=== PATIENT | female | born 1985 | race Caucasian/White ===

== ENCOUNTER 2018-05-23 08:54 | Emergency (ER) | payer OTHER ==
[2018-05-23] MEDS ORDERED: ONDANSETRON 4 MG/2 ML VIAL ONE (09:55)
[2018-05-23] MEDS ORDERED: MORPHINE 4 MG/ML SYR ONE (09:55)
[2018-05-23 09:57] LABS: Urine Blood TRACE (NEG); Urine Glucose NEGATIVE (NEG); Urine Protein NEGATIVE (NEG)
[2018-05-23 09:57] LABS: Absolute Lymphocytes (CBC) 1.3 K/uL (0.7-4.9); Absolute Monocytes 1.3 K/uL (0.1-1.3); Absolute Neutrophil 9.2 K/uL (1.8-8.0); Basophils % 0.5 % (0-1.3); Eosinophils % 0.5 % (0-4.4); Hematocrit 38.1 % (36.0-45.0); Lymphocytes % 11.2 % (15.3-44.8); MPV 8.4 fL (7.6-11.3); Monocytes % 10.7 % (3.3-12.3); RBC Red Blood Cell Count 4.12 M/uL (3.86-4.86)
[2018-05-23 10:01] LABS: Urine Bacteria >50 /HPF (<20)
[2018-05-23 10:02] LABS: Urine Culture Reflex Order NOT NEEDED
[2018-05-23 10:05] LABS: Potassium 4.1 mmol/L (3.5-5.1)
[2018-05-23 10:06] LABS: Albumin 2.8 g/dL (3.4-5.0); Bilirubin Direct 0.1 mg/dL (0-0.2); Bilirubin Total 0.2 mg/dL (0.2-1.0); Protein, Total 6.9 g/dL (6.4-8.2)
--- NOTE | 2018-05-23 10:40 | RAD REPORT ---
EXAM DESCRIPTION: CT - Abdomen Pelvis W Contrast - 05/23/2018 10:21 am CLINICAL HISTORY: Abdominal pain/left flank pain COMPARISON: none. TECHNIQUE: Computed axial tomography of the abdomen pelvis was obtained. 100 cc Isovue-300 was admin istered intravenously. Oral contrast was not requested which limits evaluation of bowel. All CT scans are performed using dose optimization technique as appropriate and may include automated exposure control or mA/KV adjustment according to patient size. FINDINGS: 14 millimeter low to intermediate density lesion is present within the lower pole of the l eft kidney. Additional 5 millimeter low to intermediate density lesion is seen within the left kidney . Small right renal cysts. No hydronephrosis. Mild enhancement of the wall of the left renal pelvis s uspected. The gallbladder has been removed. Mild prominence of the biliary tree probably is physiologic which s hould be correlated clinically with appropriate lab values. The liver, spleen, pancreas, and adrenals appear unremarkable. There is no evidence of diverticulitis. Small umbilical hernia IMPRESSION: Mild enhancement of the wall of the left renal pelvis. A 14 millimeter low to intermedia te density lesion within the lower pole left kidney. These findings probably are related to pyeloneph ritis. A less likely consideration is that the patient has a complex cystic mass within the left kidn ey. A followup renal ultrasound in 6 months recommended for re-evaluation.
[2018-05-23] MEDS ORDERED: KETOROLAC 30 MG/ML INJ ONE (10:47)
[2018-05-23] MEDS ORDERED: NA CHLORIDE 0.9% 1,000 ML ONE (11:33)
[2018-05-23] MEDS ORDERED: CEFTRIAXONE/SWI 1gm 1 GM/10 ML SYR ONE (11:33)
--- NOTE | 2018-05-23 11:38 | EDPHYS ---
Physician Documentation [facility] Name: Isabela Campos Age: 33 yrs Sex: Female : 1985 Arrival Date: 05/23/2018 Time: 08:58 Bed 19 Private MD: ED Physician Adam Coronado HPI: 05/23 09:18 This 33 yrs old Female presents to ER via Ambulatory with complaints of cp Fever, Back Pain, Abdominal Pain. 09:18 The patient complains of pain in the left mid back. The pain radiates to the left low cp back and left leg and abdomen. The patient reports fever, that was measured at 101 degrees Fahrenheit. Onset: The symptoms/episode began/occurred 2 day(s) ago. Patient reports she was diagnosed with UTI last Sunday and prescribed Bactrim which she has been taking. Historical: - Allergies: 09:13 No Known Allergies; hb - Home Meds: 09:13 None [Active]; hb - PMHx: 09:13 Aneurysm; hb - PSHx: 09:13 Open Heart; knee - bilateral; Cholecystectomy; hb - Immunization history:: Adult Immunizations up to date. - Social history:: Smoking status: Patient/guardian denies using tobacco. - Ebola Screening: : No symptoms or risks identified at this time. ROS: 09:30 Constitutional: Negative for chills, fever, poor PO intake. cp 09:30 Eyes: Negative for injury, pain, redness, and discharge. cp 09:30 ENT: Negative for drainage from ear(s), ear pain, sore throat, difficulty swallowing, difficulty handling secretions. 09:30 Cardiovascular: Negative for chest pain, edema, palpitations. 09:30 Respiratory: Negative for cough, shortness of breath, wheezing. 09:30 Abdomen/GI: Positive for abdominal pain, nausea, Negative for vomiting, diarrhea, constipation, anorexia, black/tarry stool, rectal bleeding. 09:30 Back: Positive for flank pain, on the left, Negative for injury or acute deformity, decreased range of motion. 09:30 : Positive for urinary symptoms, Negative for vaginal bleeding. 09:30 Skin: Negative for rash. 09:30 Neuro: Negative for altered mental status, headache, weakness. 09:30 All other systems are negative. Exam: 09:35 Constitutional: The patient appears in no acute distress, alert, awake, non-toxic, well cp developed, well nourished. 09:35 Head/Face: Normocephalic, atraumatic. cp 09:35 Eyes: Periorbital structures: appear normal, Conjunctiva: normal, no exudate, no injection, Sclera: no appreciated abnormality, Lids and lashes: appear normal, bilaterally. 09:35 ENT: External ear(s): are unremarkable, Ear canal(s): are normal, clear, TM's: bulging, is not appreciated, bilaterally, dullness, bilaterally, erythema, is not appreciated, bilaterally, Nose: is normal, Mouth: Lips: moist, Oral mucosa: moist, Posterior pharynx: is normal, airway is patent, no erythema, no exudate. 09:35 Neck: ROM/movement: is normal, is supple, without pain, no range of motions limitations, no meningismus, no nuchal rigidity. 09:35 Chest/axilla: Inspection: normal, Palpation: is normal, no crepitus, no tenderness. 09:35 Cardiovascular: Rate: normal, Rhythm: regular. 09:35 Respiratory: the patient does not display signs of respiratory distress, Respirations: normal, no use of accessory muscles, no retractions, no splinting, no tachypnea, labored breathing, is not present, Breath sounds: are clear throughout, no decreased breath sounds, no stridor, no wheezing. 09:35 Abdomen/GI: Inspection: abdomen appears normal, Bowel sounds: active, all quadrants, Palpation: soft, in all quadrants, mild abdominal tenderness, in the left upper quadrant and left lower quadrant, rebound tenderness, is not appreciated, involuntary guarding, is not appreciated. 09:35 Back: CVA tenderness, that is moderate, is noted on the left. 09:35 Skin: no rash present. Vital Signs: 09:13 BP 139 / 84; Pulse 91; Resp 16; Temp 99.5(TE); Pulse Ox 99% on R/A; Pain 5/10; hb 09:40 BP 125 / 82; Pulse 81; Resp 20; Pulse Ox 99% on R/A; Pain 5/10; sv 11:32 BP 110 / 69; Pulse 71; Resp 18; Pulse Ox 98% on R/A; aj1 12:13 BP 112 / 66; Pulse 72; Resp 18; Pulse Ox 99% on R/A; aj1 MDM: 09:14 Patient medically screened. 11:35 Data reviewed: vital signs, nurses notes, lab test result(s), radiologic studies, CT cp scan, I have discussed the patient's presentation/case with the attending Emergency Department Physician; and as a result, I will discharge patient. 11:35 Counseling: I had a detailed discussion with the patient and/or guardian regarding: the cp historical points, exam findings, and any diagnostic results supporting the discharge/admit diagnosis, lab results, radiology results, to return to the emergency department if symptoms worsen or persist or if there are any questions or concerns that arise at home. Response to treatment: the patient's symptoms have markedly improved after treatment. 05/23 09:23 Order name: Basic Metabolic Panel; Complete Time: 10:31 05/23 09:23 Order name: CBC with Diff; Complete Time: 10:31 05/23 09:23 Order name: Creatinine for Radiology; Complete Time: 10:31 05/23 09:23 Order name: Hepatic Function; Complete Time: 10:31 05/23 09:23 Order name: Lipase; Complete Time: 10:31 05/23 09:23 Order name: Urine Microscopic Only; Complete Time: 10:31 05/23 10:31 Interpretation: Normal except: UWBC >50; URBC 5-10; UBACT >50; SQEPI 20-50. 05/23 09:23 Order name: CT Abd/Pelvis - W/Contrast: no oral contrast; Complete Time: 10:41 05/23 10:43 Interpretation: Report reviewed. 05/23 09:41 Order name: Urine Dipstick--Ancillary (enter results); Complete Time: 10:31 05/23 09:41 Order name: Urine --Ancillary (enter results); Complete Time: 10:31 05/23 09:23 Order name: IV Saline Lock; Complete Time: 09:53 05/23 09:23 Order name: Labs collected and sent; Complete Time: 09:53 05/23 09:23 Order name: Urine Dipstick-Ancillary (obtain specimen); Complete Time: 09:53 05/23 09:23 Order name: Urine Test (obtain specimen); Complete Time: 09:53 05/23 11:03 Order name: PO challenge; Complete Time: 11:30 cp Administered Medications: 09:45 Drug: Zofran 4 mg Route: IVP; Infused Over: 2 mins; Site: right antecubital; sv 10:15 Follow up: Response: No adverse reaction aj1 09:47 Drug: morphine 4 mg Route: IVP; Infused Over: 3 mins; Site: right antecubital; sv 10:15 Follow up: Response: No adverse reaction; Pain is decreased aj1 10:42 Drug: TORadol 30 mg Route: IVP; Site: right antecubital; aj1 11:25 Follow up: Response: No adverse reaction aj1 11:24 Drug: Rocephin - (cefTRIAXone) 1 grams Route: IVPB; Infused Over: 30 mins; Site: right aj1 antecubital; 13:05 Follow up: Response: No adverse reaction; IV Status: Completed infusion; IV Intake: [id number] 11:24 Drug: NS 0.9% 1000 ml Route: IV; Rate: 1 bolus; Site: right antecubital; aj1 13:04 Follow up: IV Status: Completed infusion; IV Intake: 1000ml aj1 Disposition: 19:03 Co-signature as Attending Physician, Adam Coronado MD. rn Disposition: 05/23/18 11:38 Discharged to Home. Impression: Left Pyelonephritis. - Condition is Stable. - Discharge Instructions: Pyelonephritis, Adult. - Prescriptions for Ibuprofen 800 mg Oral Tablet - take 1 tablet by ORAL route every 8 hours As needed take with food; 30 tablet. Tylenol- Codeine #3 300-30 mg Oral Tablet - take 2 tablets by ORAL route every 6 hours As needed; 15 tablet. Zofran 4 mg Oral Tablet - take 1 tablet by ORAL route every 12 hours As needed; 20 tablet. cefpodoxime 200 mg Oral Tablet - take 1 tablet by ORAL route every 12 hours for 10 days with food; 20 tablet. - Medication Reconciliation Form, Thank You Letter, Antibiotic Education, Prescription Opioid Use form. - Follow up: Private Physician; When: 2 - 3 days; Reason: Recheck today's complaints. - Problem is new. - Symptoms have improved. Signatures: Dispatcher [employer] EDMarylu Lindsay RN RN aj1 Alma Cronin RN RN sv Nieto, Roman, MD MD rn Ben Rueda PA PA cp Baxter, Heather, RN RN Corrections: (The following items were deleted from the chart) 13:06 11:38 05/23/2018 11:38 Discharged to Home. Impression: Left Pyelonephritis. Condition aj1 is Stable. Forms are Medication Reconciliation Form, Thank You Letter, Antibiotic Education, Prescription Opioid Use. Follow up: Private Physician; When: 2 - 3 days; Reason: Recheck today's complaints. Problem is new. Symptoms have improved. cp
--- NOTE | 2018-05-23 11:38 | ER ---
Nurse's Notes [facility] Name: Isabela Campos Age: 33 yrs Sex: Female : 1985 Arrival Date: 05/23/2018 Time: 08:58 Bed 19 Private MD: Diagnosis: Left Pyelonephritis Presentation: 05/23 09:11 Presenting complaint: Burning and pain with urination x 1 week, left flank pain, hb nausea, and fever x 2 days. TMAX 101. On Bactrim Day 7 for UTI. Transition of care: patient was not received from another setting of care. Onset of symptoms was May 17, 2018. Risk Assessment: Do you want to hurt yourself or someone else? Patient reports no desire to harm self or others. Care prior to arrival: Medication(s) given: Motrin, at 0300 today. 09:11 Method Of Arrival: Ambulatory hb 09:11 Acuity: HEAVENLY 3 hb 09:35 Initial Sepsis Screen: Does the patient meet any 2 criteria? No. Patient's initial sv sepsis screen is negative. Does the patient have a suspected source of infection? Yes: Dysuria/Frequency/Urgency/UTI. Historical: - Allergies: 09:13 No Known Allergies; hb - Home Meds: 09:13 None [Active]; hb - PMHx: 09:13 Aneurysm; hb - PSHx: 09:13 Open Heart; knee - bilateral; Cholecystectomy; hb - Immunization history:: Adult Immunizations up to date. - Social history:: Smoking status: Patient/guardian denies using tobacco. - Ebola Screening: : No symptoms or risks identified at this time. Screenin:35 Abuse screen: Denies threats or abuse. Denies injuries from another. Nutritional sv screening: No deficits noted. Tuberculosis screening: No symptoms or risk factors identified. Fall Risk None identified. Assessment: 09:35 General: Appears in no apparent distress. uncomfortable, well developed, Behavior is sv calm, cooperative, appropriate for age. Pain: Complains of pain in left low back and left mid back Pain radiates to posterior aspect of left lateral abdomen, anterior aspect of left lateral abdomen and left lower quadrant Pain currently is 5 out of 10 on a pain scale. Is continuous. Neuro: Level of Consciousness is awake, alert, obeys commands, Oriented to person, place, time, situation, Moves all extremities. Full function Gait is steady. Respiratory: Respiratory effort is even, unlabored, Respiratory pattern is regular, symmetrical. : Reports burning with urination, pain in left flank(s), lower quadrant(s) in lower back with urination, that she has been taking Bactrim for a recent dx of UTI. Derm: Skin is pink, warm \T\ dry. Musculoskeletal: Range of motion: intact in all extremities. 10:30 Reassessment: Patient appears in no apparent distress at this time. No changes from aj1 previously documented assessment. Patient and/or family updated on plan of care and expected duration. Pain level reassessed. Patient is alert, oriented x 3, equal unlabored respirations, skin warm/dry/pink. 11:32 Reassessment: Patient appears in no apparent distress at this time. No changes from aj1 previously documented assessment. Patient and/or family updated on plan of care and expected duration. Pain level reassessed. Patient is alert, oriented x 3, equal unlabored respirations, skin warm/dry/pink. 12:12 Reassessment: Patient discharge pending completion of IV fluids, patient was instructed aj1 to keep her arm as straight as possible to allow fluids to infuse. 13:06 Reassessment: Patient appears in no apparent distress at this time. No changes from aj1 previously documented assessment. Patient and/or family updated on plan of care and expected duration. Pain level reassessed. Patient is alert, oriented x 3, equal unlabored respirations, skin warm/dry/pink. Vital Signs: 09:13 BP 139 / 84; Pulse 91; Resp 16; Temp 99.5(TE); Pulse Ox 99% on R/A; Pain 5/10; hb 09:40 BP 125 / 82; Pulse 81; Resp 20; Pulse Ox 99% on R/A; Pain 5/10; sv 11:32 BP 110 / 69; Pulse 71; Resp 18; Pulse Ox 98% on R/A; aj1 12:13 BP 112 / 66; Pulse 72; Resp 18; Pulse Ox 99% on R/A; aj1 ED Course: 08:58 Patient arrived in ED. tw3 09:12 Triage completed. hb 09:13 Arm band placed on. hb 09:14 Ben Rueda PA is PHCP. cp 09:14 Adam Coronado MD is Attending Physician. cp 09:29 Alma Cronin, RN is Primary Nurse. sv 09:35 Patient has correct armband on for positive identification. Placed in gown. Bed in low sv position. Call light in reach. Adult w/ patient. Pulse ox on. NIBP on. Door closed. Warm blanket given. Head of bed elevated. 09:35 Initial lab(s) drawn, by me, sent to lab. Inserted saline lock: 20 gauge in right sv antecubital area, using aseptic technique. Blood collected. Flushed right antecubital with 5 ml normal saline. 09:[address] Scan. sv 10:03 Report given to Marylu ALEJANDRA. sv 10:07 Marylu Heath, RN is Primary Nurse. aj1 10:[address] jg6 10:22 CT Abd/Pelvis - W/Contrast: no oral contrast In Process Unspecified. EDMS 12:13 No provider procedures requiring assistance completed. aj1 13:05 IV discontinued, intact, bleeding controlled, No redness/swelling at site. Pressure aj1 dressing applied. Administered Medications: 09:45 Drug: Zofran 4 mg Route: IVP; Infused Over: 2 mins; Site: right antecubital; sv 10:15 Follow up: Response: No adverse reaction aj1 09:47 Drug: morphine 4 mg Route: IVP; Infused Over: 3 mins; Site: right antecubital; sv 10:15 Follow up: Response: No adverse reaction; Pain is decreased aj1 10:42 Drug: TORadol 30 mg Route: IVP; Site: right antecubital; aj1 11:25 Follow up: Response: No adverse reaction aj1 11:24 Drug: Rocephin - (cefTRIAXone) 1 grams Route: IVPB; Infused Over: 30 mins; Site: right aj1 antecubital; 13:05 Follow up: Response: No adverse reaction; IV Status: Completed infusion; IV Intake: [id number] 11:24 Drug: NS 0.9% 1000 ml Route: IV; Rate: 1 bolus; Site: right antecubital; aj1 13:04 Follow up: IV Status: Completed infusion; IV Intake: 1000ml aj1 Intake: 13:04 IV: 1000ml; Total: 1000ml. aj1 13:05 IV: 10ml; Total: 1010ml. aj1 Outcome: 11:38 Discharge ordered by . bobbi 13:05 Discharged to home ambulatory. aj1 13:05 Condition: good 13:05 Discharge instructions given to patient, family, Instructed on discharge instructions, follow up and referral plans. no drinking with medication, no driving heavy equipment, medication usage, Demonstrated understanding of instructions, follow-up care, medications, Prescriptions given X 4. 13:06 Patient left the ED. aj1 Signatures: Dispatcher [employer] EDMarylu Lindsay RN RN aj1 Alma Cronin RN RN sv Page, Corey, PA PA Sheri Rodriguez RN RN hb Wade, Geeta tw3 Keisha Stallworth j6
== END 2018-05-23 13:06 | disposition home or self-care (01) ==
LOC: ER 08:54
DX: N12 Tubulo-interstitial nephritis, not specified as acute or chronic (principal)
CPT/HCPCS: 36415; 74177; 80048; 80076; 81003; 81015; 81025; 83690; 85025; 96365; 96366; 96375; 99284; J0696; J2405; J7030; Q9967

== ENCOUNTER 2019-04-19 19:07 | Observation (INO) | payer OTHER ==
[2019-04-19] MEDS ORDERED: MORPHINE 4 MG/ML SYR ONE (20:03)
[2019-04-19] MEDS ORDERED: ONDANSETRON 4 MG/2 ML VIAL ONE ×2 (20:03→22:39)
[2019-04-19] MEDS ORDERED: NA CHLORIDE 0.9% 1,000 ML ONE (20:04)
[2019-04-19 20:31] LABS: Protime INR 0.89
[2019-04-19 20:34] LABS: Absolute Lymphocytes (CBC) 2.1 K/uL (0.7-4.9); Basophils % 0.9 % (0-1.3); Hematocrit 42.9 % (36.0-45.0); Lymphocytes % 21.1 % (15.3-44.8); MPV 7.7 fL (7.6-11.3); RBC Red Blood Cell Count 4.65 M/uL (3.86-4.86)
--- NOTE | 2019-04-19 20:42 | RAD REPORT ---
EXAM DESCRIPTION: Mick Single View04/19/2019 8:02 pm CLINICAL HISTORY: Chest pain COMPARISON: 2016 FINDINGS: The lungs appear clear of acute infiltrate. The heart is normal size. Postsurgical changes involve the chest. IMPRESSION: No acute abnormalities displayed
[2019-04-19 20:48] LABS: ALT/SGPT 23 U/L (12-78); AST/SGOT 17 U/L (15-37); Albumin 3.2 g/dL (3.4-5.0); Alkaline Phosphatase 79 U/L (45-117); BUN Blood Urea Nitrogen 14 mg/dL (7-18); Bicarbonate 29 mmol/L (21-32); Bilirubin Direct 0.1 mg/dL (0-0.2); Bilirubin Total 0.4 mg/dL (0.2-1.0); Glucose Level 91 mg/dL (74-106); Lipase 154 U/L (73-393); Magnesium 2.3 mg/dL (1.8-2.4); NT PRO-BNP 133 pg/mL (<125); Potassium 4.3 mmol/L (3.5-5.1); Protein, Total 7.6 g/dL (6.4-8.2); Sodium Level 140 mmol/L (136-145); Troponin (Emerg Dept Use Only) < 0.02 ng/mL (0.0-0.045)
[2019-04-19] MEDS ORDERED: HYDROMORPHONE HCL 1 MG/ML INJ ONE (21:07)
--- NOTE | 2019-04-19 22:52 | EDPHYS ---
Physician Documentation [facility] Name: Isabela Campos Age: 34 yrs Sex: Female : 1985 Arrival Date: 04/19/2019 Time: 19:11 Bed 28 Private MD: ED Physician Kamala Recinos HPI: 04/18 22:48 This 34 yrs old Female presents to ER via Ambulatory with complaints of Arm ma2 Pain, Throat pain, Rash. 22:48 This 34 yrs old Female presents to ER via Ambulatory with complaints of chest ma2 pain. 22:48 The patient or guardian complains of chest pain. Associated signs and symptoms: ma2 Pertinent negatives: erythema, nausea, swelling, tingling. Severity of symptoms: At their worst the symptoms were mild, in the emergency department the symptoms are unchanged. Historical: - Allergies: 19:24 No Known Allergies; ll1 - PMHx: 19:24 Aneurysm; Pulmonary embolism; ll1 - PSHx: 19:24 knee surgeries; Cholecystectomy; ll1 - Immunization history:: Flu vaccine is not up to date. - Social history:: Smoking status: Patient denies any tobacco usage or history of. Patient/guardian denies using alcohol, street drugs, The patient lives with family. - Family history:: not pertinent. ROS: 22:48 Constitutional: Negative for fever, chills, and weight loss. ma2 22:48 All other systems are negative. Exam: 22:48 Constitutional: This is a well developed, well nourished patient who is awake, alert, ma2 and in no acute distress. Chest/axilla: Normal chest wall appearance and motion. Nontender with no deformity. No lesions are appreciated. Cardiovascular: Regular rate and rhythm with a normal S1 and S2. No gallops, murmurs, or rubs. Normal PMI, no JVD. No pulse deficits. Respiratory: Lungs have equal breath sounds bilaterally, clear to auscultation and percussion. No rales, rhonchi or wheezes noted. No increased work of breathing, no retractions or nasal flaring. Abdomen/GI: Soft, non-tender, with normal bowel sounds. No distension or tympany. No guarding or rebound. No evidence of tenderness throughout. MS/ Extremity: Pulses equal, no cyanosis. Neurovascular intact. Full, normal range of motion. Neuro: Awake and alert, GCS 15, oriented to person, place, time, and situation. Cranial nerves II-XII grossly intact. Motor strength 5/5 in all extremities. Sensory grossly intact. Cerebellar exam normal. Normal gait. 22:48 Skin: rash a mild rash is noted, rash can be described as erythematous, macular, on the abdomen. 22:48 Skin: ecchymosis on lower abdomin. ca2 Vital Signs: 19:20 Pulse 111; Resp 18; Temp 98.6; Pulse Ox 100% ; Weight 90.72 kg; Height 5 ft. 5 in. ll1 (165.10 cm); Pain 9/10; 20:00 BP 141 / 98; Pulse 92; Resp 18; Temp 98.3(O); Pulse Ox 100% on R/A; Pain 8/10; fu 21:00 BP 131 / 81; Pulse 70; Resp 18; Pulse Ox 100% ; Pain 8/10; fu 21:30 BP 137 / 81; Pulse 83; Resp 16; Pulse Ox 100% on R/A; fu 22:30 BP 114 / 66; Pulse 87; Resp 16; Pulse Ox 100% on R/A; Pain 6/10; fu 23:15 BP 117 / 70; Pulse 83; Resp 15; Pulse Ox 99% on R/A; fu 19:20 Body Mass Index 33.28 (90.72 kg, 165.10 cm) 1 MDM: 19:32 Patient medically screened. [facility] 22:48 Differential diagnosis: chest pain, PE moderate risk given she had pe in past and ca2 tachycardic here and on ocp, she does not take any blood thinners, ct pe done and constrast timing is suboptimal, will admit for obs and re-evaluate in the morning, pulse went down with ivf and pain control. 22:52 Data reviewed: vital signs, nurses notes, EMS record, diagnostic data from outside [facility] facility, lab test result(s), EKG, radiologic studies. Counseling: I had a detailed discussion with the patient and/or guardian regarding: the historical points, exam findings, and any diagnostic results supporting the discharge/admit diagnosis, the presence of at least one elevated blood pressure reading (>120/80) during this emergency department visit, the need for further work-up and treatment in the hospital. Response to treatment: the patient's symptoms have resolved after treatment. 22:52 ED course: ekg done and is sinus, with rate of 83, normal axis, intervals wnl no ma2 ischemic changes . 04/18 19:47 Order name: Basic Metabolic Panel; Complete Time: 20:59 ma2 04/18 19:47 Order name: CBC with Diff; Complete Time: 20:59 ma2 04/18 19:47 Order name: LFT's; Complete Time: 20:59 ma2 04/18 19:47 Order name: Magnesium; Complete Time: 20:59 ma2 04/18 19:47 Order name: NT PRO-BNP; Complete Time: 20:59 ma2 04/18 19:47 Order name: PT-INR; Complete Time: 20:59 ma2 04/18 19:47 Order name: Troponin (emerg Dept Use Only); Complete Time: 20:59 ma2 04/18 19:47 Order name: Lipase; Complete Time: 20:59 ma2 04/18 23:03 Order name: CBC with Automated Diff EDMS 04/18 23:03 Order name: CBC with Automated Diff EDMS 04/18 23:03 Order name: Comprehensive Metabolic Panel EDMS 04/18 23:03 Order name: Comprehensive Metabolic Panel EDMS 04/18 23:14 Order name: Troponin I EDMS 04/18 23:14 Order name: Troponin I EDMS 04/18 19:47 Order name: XRAY Chest (1 view) ma2 04/18 19:47 Order name: EKG; Complete Time: 19:48 ma2 04/18 19:47 Order name: Cardiac monitoring; Complete Time: 20:33 ma2 04/18 19:47 Order name: EKG - Nurse/Tech; Complete Time: 20:33 ma2 04/18 19:47 Order name: IV Saline Lock; Complete Time: 20:34 ma2 04/18 19:47 Order name: Labs collected and sent; Complete Time: 20:34 ma2 04/18 19:47 Order name: CT Chest For PE Angio ma2 04/18 20:47 Order name: RAD; Complete Time: 20:59 EDMS 04/18 23:03 Order name: CONS Pharmacy Consult EDMS 04/18 23:03 Order name: Regular EDMS 04/18 23:17 Order name: Chest Angio EDMS 04/18 19:47 Order name: O2 Per Protocol; Complete Time: 20:34 ma2 04/18 19:47 Order name: O2 Sat Monitoring; Complete Time: 22:17 ma2 Administered Medications: 20:14 Drug: Zofran (Ondansetron) 4 mg Route: IVP; Site: right antecubital; fu 20:47 Follow up: Response: No adverse reaction fu 20:20 Drug: morphine 4 mg Route: IVP; Site: right antecubital; fu 20:34 Follow up: Response: Pain is unchanged, physician notified fu 20:30 Drug: NS 0.9% 1000 ml Route: IV; Rate: 1 bolus; Site: right antecubital; fu 22:54 Follow up: Response: No adverse reaction; IV Intake: 1000ml fu 21:08 Drug: Dilaudid 1 mg Route: IVP; Site: right antecubital; fu 22:08 Follow up: Response: Pain is decreased fu 22:45 Drug: Zofran (Ondansetron) 4 mg Route: IVP; Infused Over: 2 mins; Site: right fu antecubital; 23:29 Follow up: Response: Nausea is decreased fu Disposition: 04/19/19 22:52 Hospitalization ordered by Isabel Nicole for Observation. Preliminary diagnosis is Chest pain, unspecified. - Bed requested for Telemetry/MedSurg (observation). - Status is Observation. fu - Condition is Stable. - Problem is new. - Symptoms are unchanged. Signatures: Dispatcher [employer] EDMO Elizabeth Stallworth RN RN Jeff Benitez RN RN Kamala Recinos MD MD ma2 Lewis, Lynsay, RN RN ll1 Corrections: (The following items were deleted from the chart) 23:37 22:52 Hospitalization Ordered by Isabel Nicole MD for Observation. Preliminary cg diagnosis is Chest pain, unspecified. Bed requested for Telemetry/MedSurg (observation). Status is Observation. Condition is Stable. Problem is new. Symptoms are unchanged. ca2 04/19 00:19 04/18 23:37 04/19/2019 22:52 Hospitalization Ordered by Isabel Nicole MD for fu Observation. Preliminary diagnosis is Chest pain, unspecified. Bed requested for Telemetry/MedSurg (observation). Status is Observation. Condition is Stable. Problem is new. Symptoms are unchanged. cg
--- NOTE | 2019-04-19 22:52 | ER ---
Nurse's Notes [facility] Name: Isabela Campos Age: 34 yrs Sex: Female : 1985 Arrival Date: 04/19/2019 Time: 19:11 Bed 28 Private MD: Diagnosis: Chest pain, unspecified Presentation: 04/18 19:20 Chief complaint: Patient states: Pain to mid chest with eating swallowing for a couple ll1 weeks, worsening pain this week. Pain now to left shoulder blade area. Rash to body. Today noticed bruising to upper legs. No fever. Coronavirus screen: The patient has NOT traveled to a country currently being monitored by the [facility] within the last 14 days. Proceed with normal triage procedures. Ebola Screen: Patient denies travel to an Ebola-affected area in the 21 days before illness onset. Initial Sepsis Screen: Does the patient meet any 2 criteria? HR > 90 bpm. No. Patient's initial sepsis screen is negative. Does the patient have a suspected source of infection? No. Patient's initial sepsis screen is negative. Risk Assessment: Do you want to hurt yourself or someone else? Patient reports no desire to harm self or others. 19:20 Method Of Arrival: Ambulatory ll1 19:20 Acuity: HEAVENLY 3 ll1 Historical: - Allergies: 19:24 No Known Allergies; ll1 - PMHx: 19:24 Aneurysm; Pulmonary embolism; ll1 - PSHx: 19:24 knee surgeries; Cholecystectomy; ll1 - Immunization history:: Flu vaccine is not up to date. - Social history:: Smoking status: Patient denies any tobacco usage or history of. Patient/guardian denies using alcohol, street drugs, The patient lives with family. - Family history:: not pertinent. Screenin:49 Abuse screen: Denies threats or abuse. Nutritional screening: No deficits noted. fu Tuberculosis screening: No symptoms or risk factors identified. Fall Risk None identified. Assessment: 19:20 General: Appears uncomfortable, Behavior is calm, cooperative, appropriate for age, fu Reports heartburn, chest discomfort, back pain, bruising to left hip, rashes on breast folds. Pain: Complains of pain in back pain Pain radiates to left shoulder and arm Pain currently is 9 out of 10 on a pain scale. Quality of pain is described as sharp, Pain began about 1 week ago. Neuro: Level of Consciousness is awake, alert, obeys commands, Oriented to person, place, time, situation. Cardiovascular: Reports chest discomfort Denies diaphoresis, lightheadedness, nausea, palpitations, shortness of breath, syncope, vomiting. Respiratory: Airway is patent Respiratory effort is even, unlabored, Respiratory pattern is regular, symmetrical. GI: Abdomen is obese. : No signs and/or symptoms were reported regarding the genitourinary system. EENT: No signs and/or symptoms were reported regarding the EENT system. Derm: scar noted to mid chest area from previous surgery. 20:50 Reassessment: No changes from previously documented assessment. Patient and/or family fu updated on plan of care and expected duration. Pain level reassessed. Patient is alert, oriented x 3, equal unlabored respirations, skin warm/dry/pink. patient stated Morphine IV not helping with pain, Dr. Recinos notified. 22:09 Reassessment: Patient and/or family updated on plan of care and expected duration. Pain fu level reassessed. Patient is alert, oriented x 3, equal unlabored respirations, skin warm/dry/pink. patient resting in bed. 22:30 Reassessment: patient complaining of nausea, Dr. Recinos notified. fu 22:40 Reassessment: Dr. Recinos in patient's room, advised admission. fu 23:28 Reassessment: No changes from previously documented assessment. Patient and/or family fu updated on plan of care and expected duration. Pain level reassessed. Dr. Nicole in patient's room. Vital Signs: 19:20 Pulse 111; Resp 18; Temp 98.6; Pulse Ox 100% ; Weight 90.72 kg; Height 5 ft. 5 in. ll1 (165.10 cm); Pain 9/10; 20:00 BP 141 / 98; Pulse 92; Resp 18; Temp 98.3(O); Pulse Ox 100% on R/A; Pain 8/10; fu 21:00 BP 131 / 81; Pulse 70; Resp 18; Pulse Ox 100% ; Pain 8/10; fu 21:30 BP 137 / 81; Pulse 83; Resp 16; Pulse Ox 100% on R/A; fu 22:30 BP 114 / 66; Pulse 87; Resp 16; Pulse Ox 100% on R/A; Pain 6/10; fu 23:15 BP 117 / 70; Pulse 83; Resp 15; Pulse Ox 99% on R/A; fu 19:20 Body Mass Index 33.28 (90.72 kg, 165.10 cm) ll1 ED Course: 19:11 Patient arrived in ED. es 19:23 Triage completed. ll1 19:25 Arm band placed on Patient placed in an exam room. ll1 19:31 Kamala Recinos MD is Attending Physician. ma2 19:40 Inserted saline lock: 22 gauge in left antecubital area, using aseptic technique. Blood fu collected. 19:54 Jeff Benitez, RN is Primary Nurse. fu 20:34 Radiology exam delayed due to lab results not completed at this time. (BUN/Creatinine). mw3 21:21 CT Chest For PE Angio In Process Unspecified. EDMS 21:49 No provider procedures requiring assistance completed. fu 22:01 Patient has correct armband on for positive identification. Placed in gown. Bed in low fu position. Call light in reach. 22:02 air sampling and monitoring on. Pulse ox on. NIBP on. fu 22:52 Isabel Nicole MD is Hospitalizing Provider. ma2 23:51 Patient admitted, IV remains in place. intact. fu Administered Medications: 20:14 Drug: Zofran (Ondansetron) 4 mg Route: IVP; Site: right antecubital; fu 20:47 Follow up: Response: No adverse reaction fu 20:20 Drug: morphine 4 mg Route: IVP; Site: right antecubital; fu 20:34 Follow up: Response: Pain is unchanged, physician notified fu 20:30 Drug: NS 0.9% 1000 ml Route: IV; Rate: 1 bolus; Site: right antecubital; fu 22:54 Follow up: Response: No adverse reaction; IV Intake: 1000ml fu 21:08 Drug: Dilaudid 1 mg Route: IVP; Site: right antecubital; fu 22:08 Follow up: Response: Pain is decreased fu 22:45 Drug: Zofran (Ondansetron) 4 mg Route: IVP; Infused Over: 2 mins; Site: right fu antecubital; 23:29 Follow up: Response: Nausea is decreased fu Intake: 22:54 IV: 1000ml; Total: 1000ml. fu Outcome: 22:52 Decision to Hospitalize by Provider. ma2 23:50 Admitted to Tele accompanied by tech, family with patient, via wheelchair, room 415, fu Report called to Dawn ALEJANDRA 23:50 Condition: stable 23:50 Instructed on the need for admit, Demonstrated understanding of instructions. 04/19 00:19 Patient left the ED. fu Signatures: Dispatcher [employer] EDMckenzie Salazar Felix RN RN Kamala Recinos MD MD ma2 Jessica Beyer 3 Ellie Samano RN RN ll1 Corrections: (The following items were deleted from the chart) 04/18 22:26 19:20 Pain: Complains of pain in back pain Pain radiates to left shoulder and arm Pain fu currently is 8 out of 10 on a pain scale. Quality of pain is described as sharp, Pain began about 1 month ago fu
[2019-04-19] MEDS ORDERED: ALBUTEROL 2.5 MG/3 ML NEB SOL NEB PRN (23:00)
[2019-04-19] MEDS ORDERED: ONDANSETRON 4 MG/2 ML VIAL IV PRN (23:00)
[2019-04-19] MEDS ORDERED: GUAIFENESIN/DM 5 ML UCUP PO PRN (23:07)
[2019-04-20 00:29] VITALS: BMI 33.8
[2019-04-20 00:54] LABS: Thyroid Stimulating Hormone 5.46 uIU/mL (0.360-3.740)
[2019-04-20] MEDS: MORPHINE 2 MG/ML SYR IV PRN ×5 (01:10→20:14)
[2019-04-20] MEDS: D5 0.9 NS 1,000 ML IV SCH ×3 (01:10→19:00)
[2019-04-20] MEDS: PROMETHAZINE INJ 25 MG/ML AMP IV PRN ×5 (01:11→20:15)
--- NOTE | 2019-04-20 01:20 | HP ---
Date of Admission: 04/19/2019 Presenting Complaint: Epigastric area pain. History Of Present Illness: Ms. 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 She has had several successful pregnancies without any complicated blood clots or bleeding since then. She developed epigastric pain post after swallowing any solids and liquid si nce the last 1 month. The pain is associated with feeling of intense nausea, but no overt vomiting. The patient states she has been taking lots of Pepcid and jynl-far-hrzsgdz Tums for the symptoms. S he denies any dysphagia. She states pain later became associated with radiation towards the back as well as to the shoulder. She denies any anterior chest wall pain. She is a former smoker, but quit smoking over the last 15 years. There is a family history of father with coronary artery disease in h is 60s, but he is still alive and well. She takes OCP for control now. She denies any other s ymptoms. She denies any fever or chills, she denies any cough. She presented to the ED today emanuel tovar of persistent pain with meals as well as a new onset bruising in her thighs. Although she admits t o recently shaving around the area. She denies any recent fall. Past Medical History: Significant for thoracic aortic aneurysm status post repair as well as PE. Past Surgical History: Aortic aneurysm repair in 2001, history of knee surgeries, history of cholecy stectomy for gallstones in 2008. Allergies: NO KNOWN DRUG ALLERGIES. Home Medications: Patient takes control pill, Enskyce. Family History: Father with history of coronary artery disease in his 60s. There is no history of P E or CVA. Social History: Patient is a former smoker, quit over 15 years ago. She resides in the community wi th the family. Spouse is at her bedside now. She denies any alcohol or illicit drug use. Review of Systems: All systems reviewed x14 were negative except for rash over the upper thighs. Physical Examination: Current Vitals: Blood pressure of 132/68, pulse rate of 92, respiratory rate of 18, temperature 98.3 , O2 saturation 100% on room air, weight of 90.7 kg. General: Obese, young female, calm, not in any distress. HEENT: Pupils equal and reactive to light. Extraocular motor movement intact. Neck: No JVD. No carotid bruits. Chest: Good air entry bilaterally. No crepitations. Cardiovascular: S1, S2. Rate and rhythm regular. GI: Mild epigastric area tenderness, but no rebound. Bowel sounds positive. No reproducible tender ness. No guarding noted. Extremities: Small fading purpura over the bilateral upper thighs around the groin area, although sh e has recently shaved. No pedal edema. No calf tenderness. Integumentary: No other rash noted except for the fading purpura areas of 2 small discrete sizes in the upper groin/upper thigh area. Neuro: Patient is alert, oriented. Cranial nerves 2 through 12 grossly intact. Laboratory Data: EKG showed normal sinus rhythm, borderline QT length, QTc of [address]-segme nt changes. Rest of lab, INR 0.89, PT 10.6. WBC 9.9, hemoglobin 14, neutrophils 65%, no bands. Sod ium 140, potassium 4.3, creatinine 1.25, calcium 9.0, magnesium 2.3. T-bilirubin, AST, alkaline phos phatase normal. Troponin less than 0.02. Repeat pending. ProBNP of 133, albumin 3.2, lipase 154. Imaging Studies: Chest x-ray shows no acute infiltrate. CTA shows poor timing of contrast injection , but no evidence of thoracic dissection or aneurysm. No focal consolidations, but study was subopti mal for ruling out pulmonary embolism. Repeat CT in 12 hours recommended. Impression: 1.Presumed gastritis. 2.Rule out acute coronary syndrome and pulmonary embolism, although less likely. 3.Creatinine elevation. Plan: We will admit patient to observation. We will obtain D-dimer and if D-dimer is negative, we w ill not need repeat CTA since the patient does not have features consistent with pulmonary embolism a s she is not short of breath and there is no describable chest pain. However, if D-dimer is elevated , then we will go ahead and obtain repeat CTA to rule out PE. We will do gentle IV hydration for yocasta vated creatinine, especially in setting of contrast exposure. Follow repeat creatinine in a.m. We w ill start patient on empirical Protonix 40 mg b.i.d. We will consult GI since the patient's findings of postprandial epigastric pain seems to be consistent with gastritis. Pancreatitis is also conside red, but normal lipase ruled out pancreatitis. We will consult GI to evaluate. We will do repeat ca rdiac enzymes if negative, but still low threshold for acute coronary syndrome. If PE and acute everett nary syndrome are ruled out, then patient can be safely discharged with Protonix if unable to get GI over the weekend. We will do subcutaneous Lovenox for DVT prophylaxis. Advanced directives, patient is full code. Total time spent in review of record, discussion with patient, and evaluation greater than 60 minutes . EO/MODL Voice ID: [id number]
[2019-04-20] MEDS: PANTOPRAZOLE 40MG TABLET PO SCH ×3 (01:32→15:40)
[2019-04-20] MEDS: LORAZEPAM 0.5 MG TABLET PO PRN ×2 (01:33→21:33)
[2019-04-20] MEDS ORDERED: IPRATROPIUM BROM 0.5MG/2.5ML NEB SCH (03:00)
[2019-04-20 04:24] LABS: Urine Appearance CLEAR; Urine Bilirubin NEGATIVE (NEG); Urine Blood NEGATIVE (NEG); Urine Color YELLOW; Urine Glucose NEGATIVE (NEG); Urine Protein NEGATIVE (NEG); Urine Specific Gravity >=1.030 (1.005-1.030); Urine Urobilinogen 0.2 mg/dL (0.2-1.0)
[2019-04-20 04:30] LABS: Urine Bacteria 20-50 /HPF (<20); Urine Mucus 1+ /HPF (NONE SEEN); Urine RBC NONE SEEN /HPF (NONE SEEN)
[2019-04-20 05:53] LABS: Absolute Lymphocytes (CBC) 2.3 K/uL (0.7-4.9); Basophils % 1.3 % (0-1.3); Hematocrit 36.7 % (36.0-45.0); Lymphocytes % 24.6 % (15.3-44.8); RBC Red Blood Cell Count 3.99 M/uL (3.86-4.86)
[2019-04-20 06:12] LABS: Albumin 2.8 g/dL (3.4-5.0); Bilirubin Total 0.5 mg/dL (0.2-1.0); Protein, Total 6.5 g/dL (6.4-8.2)
--- NOTE | 2019-04-20 06:26 | EKG ---
Test Date: 2019-04-19 Test Time: 20:23:16 Data Capture Clerk: SCOOTER MEASUREMENT RESULTS: Intervals: Rate: 82 HI: 136 QRSD: 94 QT: 414 QTc: 483 [place]: P: 48 HI: 136 QRS: 38 T: 48 INTERPRETIVE STATEMENTS: Normal sinus rhythm Prolonged QT Abnormal ECG No previous ECG available for comparison Electronically Signed On 04-20-19 06:26:11 CDT by David Victor
[2019-04-20] MEDS ORDERED: DIPHENHYDRAMINE 25 MG TAB/CAP PO ONE (06:45)
[2019-04-20] MEDS ORDERED: NITROGLYCERIN 0.2 MG/HR (5 MG) PATCH TD SCH (09:00)
[2019-04-20] MEDS ORDERED: NYSTATIN PWDR 100000 UNIT/GM TOP PRN (09:00)
[2019-04-20] MEDS ORDERED: FAMOTIDINE 20 MG TAB PO SCH (09:00)
[2019-04-20] MEDS ORDERED: GUAIFENESIN 600 MG SA TAB PO SCH (09:00)
--- NOTE | 2019-04-20 13:15 | RAD REPORT ---
EXAM DESCRIPTION: CT - Chest For Pe Angio - 04/20/2019 12:37 pm CLINICAL HISTORY: Chest pain. chest pain r/o PE COMPARISON: Chest For Pe Angio dated 04/19/2019 TECHNIQUE: CT angiogram of the pulmonary arteries was performed with MIP. All CT scans are performed using dose optimization technique as appropriate and may include automated exposure control or mA/KV adjustment according to patient size. FINDINGS: No evidence of pulmonary thromboembolism. No acute aortic finding demonstrated. The lungs are clear. No significant pericardial or pleural fluid. No concerning bony finding. IMPRESSION: No evidence of pulmonary thromboembolism. No acute lung findings.
--- NOTE | 2019-04-20 14:11 | CON ---
Date of Consultation: 04/20/2019 Reason For Consultation: Midepigastric pain. History Of Present Illness: Patient is a 34-year-old white female with history of traumatic aortic a neurysm status post repair in 2001 and laparoscopic cholecystectomy. [facility] to midepigastric pain. The patient states that recently she has been having postprandial midep igastric pain that reaches a maximum of 10/10; currently, she has none but states every time she eats , she has had pain just to the left of that pain that radiates to the middle of her back. On the lef t side of her back, she has another pain that can reach 10/10, but it stays, never goes away and it c urrently is 6/10. It is worse with deep breathing. She has a history of pulmonary emboli with a D-d onelia that is elevated on this admission at 942. The patient has a history of pulmonary emboli with t he aortic arch and thoracic aortic aneurysm repair in 2001. The patient ate breakfast earlier this m orning. Is unable to do EGD, but will need to await repeat CT scan, which has been done as well. Past Medical History: Significant for a thoracic aorta aneurysm and aortic arch repair in 2001 along with a pulmonary embolism at that time. She is also status post laparoscopic cholecystectomy. Past Surgical History: Included thoracic aortic aneurysm and repair in 2001, history of knee surgeri es, and laparoscopic cholecystectomy for gallstones in 2008. Medications: control pill Enskyce. Allergies: NKDA. Social History: She is , 3 children. No tobacco; quit 15 years ago. Positive alcohol, occas ional alcohol. Family History: Father is alive with coronary artery disease, status post AK in his 60s. Mother is alive with migraine headaches. Review of Systems: The patient has midepigastric pain that radiates to the mid upper back, also a constant left back ladonna n just to the left of the back pain, which is worse with deep breathing. The patient denies any andrzej temesis, coffee-grounds emesis, hematuria, dysuria, polydipsia, melena, hematochezia, chest pain, karley rtness of breath, seizure, syncope, depression, anxiety, muscle aches, joint aches, backaches. Physical Examination: Vital Signs: The patient is 5 feet 5 inches, 203 pounds, BMI of 33.8 kg/sq m, temperature of 97.6 de grees Fahrenheit, pulse 70, respirations 17, blood pressure 133/70, O2 saturation 98%. HEENT: Normocephalic, atraumatic. Anicteric. Pupils equal, round, and reactive to light. Extraocu lar muscles intact. Neck: Supple. No masses. Respirations: Clear to auscultation bilaterally. Cardiac: Revealed no gallops, murmurs, rubs. Abdomen: Positive bowel sounds. Soft. Pain in the midepigastric area. There is just mild tenderne ss there. No real significant pain. No peritoneal or Trujillo sign. No costovertebral tenderness on back exam or palpation of back. The patient states the pain is on the inside, somewhere on the left mid back. Extremities: No clubbing, cyanosis, or edema. 2+ pulses. Neuro: Alert and oriented x3. Grossly nonfocal. 5/5 motor strength and intact to light touch. General: She is obese as well. Laboratory Data: The patient has a white count of 9.2; hemoglobin 12.2, down from 14.3 yesterday; MC V of 92; platelet count of 241. Polys of 62%, lymphs 25%, monos 7%, eosinophils 5%, basophils 1%. S he has a PT of 10.6, INR of 0.89, PTT of 27.6, but a D-dimer elevated at 942, normal is less than 500 . Has a sodium 140, potassium 4.0, chloride 108, bicarb 28, BUN 10, creatinine of 1.13, glucose 110, calcium 8.1, total bilirubin 0.5, magnesium 2.3 yesterday. AST of 25, ALT 22, alkaline phosphatase 60. Troponin I is less than 0.02 x3. B-type natriuretic peptide slightly elevated at 133. Total pr otein 6.5, albumin 3.8, globulin 3.7. TSH of 5.5, free T4 of 1.21. UA showed trace ketones, 10-20 s quamous epithelial cells, 30 uro, 20-50 bacteria, 1+ mucus, otherwise negative. Imaging: Chest x-ray, no acute display. CT of abdomen and chest had technical difficulties and is s upposed to repeat that today. Impression: 1.Midepigastric pain, is postprandial, radiating to mid back, 10/10 at maximum, now none. To the le ft of that pain in the back radiating from the midepigastric area is another left back pain that reac hes 10/10, currently 6/10. It is worse with deep breathing with a history of pulmonary emboli in 200 2 and now with a D-dimer elevated on this admission of 942. Patient already ate breakfast this morni ng. We will not be able to do esophagogastroduodenoscopy today but need to await repeat CT scan anyw ay. 2.Elevated D-dimer at 942, history of pulmonary embolism in 2001. Await CT scan of chest. 3.History of thoracic aortic aneurysm and aortic arch surgery in 2001 and laparoscopic cholecystecto my in the past. Recommendations: 1.Await repeat CT of chest. 2.PPI therapy. 3.EGD once pulmonary clearance and no blood clots noted on evaluation. JH/HERMELINDA Voice ID: [id number] Report ID: [id number]
--- NOTE | 2019-04-20 14:26 | PN ---
Date of Progress Note: 04/20/2019 Subjective: Patient is seen and examined. Chart reviewed and case discussed with RN. Patient compl aining of rash on her body as well as pain in the middle of her chest going to the back. Medications: List reviewed. Physical Examination: Vital Signs: Temperature 97.6, heart rate 70, blood pressure 133/78, respirations 17, O2 of 98% on r oom air. General: Awake, alert, oriented x3, in some mild distress, ill-appearing female, obese, BMI 33.8. CV: S1, S2. Regular rate and rhythm. Peripheral pulses present. Respiratory: Moving air well bilaterally. No wheezing or stridor. Gastrointestinal: Abdomen is soft, nontender, nondistended. Positive bowel sounds. Extremities: No clubbing, cyanosis, or edema. Neuro: Cranial nerves 2 through 12 intact grossly. No focal neurological deficits. Speech is matthew l. Skin: Patient examined with female assistant plant control operator, Josiane, charge nurse present at the bedside. Patient h as minimal maculopapular rash underneath her breast fold and slight ecchymosis, bilateral anterior th ighs. Laboratory Data: Sodium 140, potassium 4, chloride 108, CO2 of 28, BUN 10, creatinine 1.13, glucose 110, calcium 8.1. Troponin less than 0.02, albumin 2.8. WBC 9.2, H and H 12.2 and 36.7, platelets 2 41. Assessment: 34-year-old female with: 1.Abdominal discomfort, pain, epigastric, possibly gastritis or esophagitis. Plan is for EGD. Dr. [place] has been consulted. Acute coronary syndrome has been ruled out. CT angio chest study was naman ble to rule out PE due to missed timing of contrast. We will repeat study at 10 a.m. We will need t o monitor creatinine level. 2.Obesity. BMI 33. 3.Hypothyroidism. TSH is elevated. We will start on levothyroxine. 4.Elevated D-dimer. CTA pending. Patient has history of pulmonary embolism and deep venous thrombo sis and currently also on control pills, which is high risk. Plan: Anticipate EGD. Follow up with CT angio to rule out PE. Continue with Protonix b.i.d. DVT pr ophylaxis with Lovenox. SA/MODL Voice ID: [id number] Report ID: [id number]
--- NOTE | 2019-04-20 20:43 | RAD REPORT ---
EXAM DESCRIPTION: US - Extrem Venous W Compress Joseluis - 04/20/2019 8:30 pm CLINICAL HISTORY: lower ext swelling, elevated D Dimer Bilateral leg edema and swelling. COMPARISON: No comparisons TECHNIQUE: Real-time sonographic interrogation of the left and right lower extremity deep venous sys tems was performed. FINDINGS: Normal compressibility, flow augmentation, phasic flow and spontaneous flow is identified in both the left and right lower extremity deep venous systems. IMPRESSION: No sonographic evidence of left or right lower extremity deep venous thrombosis.
[2019-04-21] MEDS: MORPHINE 2 MG/ML SYR IV PRN ×4 (00:07→14:14)
[2019-04-21] MEDS: PROMETHAZINE INJ 25 MG/ML AMP IV PRN ×4 (00:07→14:17)
[2019-04-21] MEDS: D5 0.9 NS 1,000 ML IV SCH (04:54)
[2019-04-21 06:07] LABS: Potassium 4.8 mmol/L (3.5-5.1)
[2019-04-21] MEDS: PANTOPRAZOLE 40MG TABLET PO SCH (08:10)
[2019-04-21] MEDS ORDERED: LEVOTHYROXINE SOD 0.025 MG TAB PO SCH (10:24)
--- NOTE | 2019-04-21 10:52 | RAD REPORT ---
EXAM DESCRIPTION: RAD - Lumbar Spine 3 Views - 04/21/2019 10:36 am CLINICAL HISTORY: Back Pain Radiculopathy COMPARISON: Lumbar Puncture For Dx dated 12/28/2016 FINDINGS: Vertebral body heights appear maintained. No compression fracture noted. Disc spaces are m aintained. No spondylolysis or spondylolisthesis. Cholecystectomy. IMPRESSION: Unremarkable examination.
--- NOTE | 2019-04-21 11:27 | RAD REPORT ---
EXAM DESCRIPTION: Chest For Pe Angio CLINICAL HISTORY: 34 years Female ?PE. hx of pe, has tachycardia/ CP, takes OCP, ;Chest pain COMPARISON: None. TECHNIQUE: Contiguous axial images obtained through the chest during the infusion of IV contrast. Re formatted images obtained. MIP reformatted images obtained. This exam was performed according to our department optimization program which includes automated exp osure control, adjustment of the mA and/or kv according to patient size and/or use of iterative recon struction technique. FINDINGS: The visualized upper abdominal organs appear unremarkable. There are changes from previous sternotomy. No pericardial effusion. The mediastinum appears unremarkable. No evidence for thoracic aortic dissection. The contrast bolus timing is suboptimal and there is motion artifact on the images. It is difficult t o totally exclude pulmonary emboli on this study. Repeat imaging or VQ scanning is recommended. Mild dependent atelectasis. No consolidating infiltrates or pleural effusions. No pneumothorax. IMPRESSION: The study is suboptimal for pulmonary embolism evaluation secondary to contrast bolus ti shabana and motion artifact. Repeat study or VQ scanning is recommended. Electronically signed by: Jack Up MD 04/19/2019 9:53 PM TUBE CARRIER Due to temporary technical issues with the PACS/Fluency reporting system, reports are being signed by the in house radiologist as a courtesy to ensure prompt reporting. The interpreting radiologist is f ully responsible for the content of the report.
[2019-04-21 11:30] VITALS: O2SAT 100
[2019-04-21 12:25] VITALS: BP 108/50; TEMP 97
--- NOTE | 2019-04-21 14:44 | RAD REPORT ---
EXAM DESCRIPTION: RAD - Esophagram Only - 04/21/2019 2:34 pm CLINICAL HISTORY: dysphagia Chest pain, difficulty swallowing COMPARISON: Abdomen Pelvis W Contrast dated 05/23/2018 FINDINGS: An esophagram was performed and shows normal bolus formation and normal initiation of swal lowing. Primary peristalsis is normal with no intrinsic or extrinsic esophageal abnormalities. Total fluoroscopy time: 43 seconds Number of images acquired: 7 IMPRESSION: Unremarkable barium esophagram.
[2019-04-21] MEDS ORDERED: ALBUTEROL 2.5 MG/3 ML NEB SOL NEB PRN (15:00)
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
== END 2019-04-21 16:16 | disposition home or self-care (01) ==
LOC: ER 19:07 → ERHOLD 23:01 → 4TH 23:52
PROVIDERS: ADMIT Internal Medicine; ATTEND Family Medicine
DX: R10.13 Epigastric pain (principal); R07.89 Other chest pain; R79.1 Abnormal coagulation profile; E03.9 Hypothyroidism, unspecified; R21 Rash and other nonspecific skin eruption; R94.31 Abnormal electrocardiogram [ECG] [EKG]; E66.9 Obesity, unspecified; Z68.33 Body mass index [BMI] 33.0-33.9, adult; Z79.3 Long term (current) use of hormonal contraceptives; Z86.711 Personal history of pulmonary embolism; Z90.49 Acquired absence of other specified parts of digestive tract; Z87.891 Personal history of nicotine dependence
CPT/HCPCS: 93005; 87088; 85025 ×2; 81001; 87086; 80048 ×2; 36415 ×2; 83735; 85610; 85379; 80076; 85730; 84443; 84484 ×3; 84439; 83690; 80053; 83880; 71275 ×2; 74220; 71045; 72100; 93970; 92610; 96375; 96374; 99285; Q9967 ×2; J2550 ×9; J2270 ×9; J1170; J7042 ×3; J7030; J2405 ×2; G0378 ×3

== ENCOUNTER 2020-06-02 09:12 | Emergency (ER) | payer OTHER ==
--- NOTE | 2020-06-02 10:24 | RAD REPORT ---
EXAM DESCRIPTION: RAD - Chest Single View - 06/02/2020 10:11 am CLINICAL HISTORY: DYSPNEA Chest pain. COMPARISON: Chest Single View dated 04/19/2019; Chest Pa And Lat (2 Views) dated 01/29/2016 FINDINGS: Portable technique limits examination quality. The lungs are grossly clear. The heart is normal in size. No displaced fractures.Sternotomy wires see n. IMPRESSION: No acute intrathoracic process suspected.
[2020-06-02] MEDS ORDERED: METOCLOPRAMIDE 10 MG/2mL INJ ONE (10:58)
[2020-06-02] MEDS ORDERED: NA CHLORIDE 0.9% 1,000 ML ONE (10:58)
[2020-06-02] MEDS ORDERED: DIPHENHYDRAMINE 50 MG/ML VIAL ONE (10:58)
[2020-06-02 11:00] LABS: Absolute Lymphocytes (CBC) 1.7 K/uL (0.7-4.9); Basophils % 0.4 % (0-1.3); Hematocrit 38.5 % (36.0-45.0); Lymphocytes % 18.7 % (15.3-44.8); MPV 8.4 fL (7.6-11.3); RBC Red Blood Cell Count 4.11 M/uL (3.86-4.86)
[2020-06-02 11:05] LABS: Protime INR 0.92
[2020-06-02 11:29] LABS: ALT/SGPT 29 U/L (12-78); AST/SGOT 33 U/L (15-37); Albumin 3.1 g/dL (3.4-5.0); Alkaline Phosphatase 72 U/L (45-117); BUN Blood Urea Nitrogen 10 mg/dL (7-18); Bicarbonate 29 mmol/L (21-32); Bilirubin Direct 0.2 mg/dL (0-0.2); Bilirubin Total 0.6 mg/dL (0.2-1.0); Glucose Level 106 mg/dL (74-106); Magnesium 2.1 mg/dL (1.8-2.4); NT PRO-BNP 41 pg/mL (<125); Protein, Total 7.5 g/dL (6.4-8.2); Sodium Level 136 mmol/L (136-145); Troponin (Emerg Dept Use Only) < 0.02 ng/mL (0.0-0.045)
--- NOTE | 2020-06-02 11:52 | EDPHYS ---
Physician Documentation [facility] Name: Isabela Campos Age: 35 yrs Sex: Female : 1985 Arrival Date: 06/02/2020 Time: 09:13 Bed 3 Private MD: ED Physician Ben Patel HPI: 06/02 09:54 This 35 yrs old Female presents to ER via Ambulatory with complaints of jr8 Irregular Pulse. 09:54 Onset: The symptoms/episode began/occurred suddenly, this morning. Associated signs and jr8 symptoms: Pertinent positives: chest pain, dizziness, shaky, nausea. Patient presents for sudden onset feeling of heart racing with associated "shakiness" and nausea. She has PMHx: PE and aortic aneurysm in 2002. She currently takes OBC but denies smoking or recreational/caffeine use.. 11:47 The patient has not experienced similar symptoms in the past. The patient has not jr8 recently seen a physician. 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 - Social history:: Smoking status: Patient denies any tobacco usage or history of. ROS: 10:24 Eyes: Negative for injury, pain, redness, and discharge, ENT: Negative for injury, jr8 pain, and discharge, Respiratory: Negative for shortness of breath, cough, wheezing, and pleuritic chest pain. 10:24 Cardiovascular: Positive for palpitations, Chest tightness. 10:24 Abdomen/GI: Positive for nausea. 10:24 MS/extremity: Positive for Generalized "shakiness". 10:24 Neuro: Positive for dizziness. 10:24 All other systems are negative. Exam: 10:26 Constitutional: This is a well developed, well nourished patient who is awake, alert, jr8 and in no acute distress. Head/Face: Normocephalic, atraumatic. Eyes: Pupils equal round and reactive to light, extra-ocular motions intact. Lids and lashes normal. Conjunctiva and sclera are non-icteric and not injected. Cornea within normal limits. Periorbital areas with no swelling, redness, or edema. Chest/axilla: Normal chest wall appearance and motion. Nontender with no deformity. No lesions are appreciated. Cardiovascular: Regular rate and rhythm with a normal S1 and S2. No gallops, murmurs, or rubs. Normal PMI, no JVD. No pulse deficits. Respiratory: Lungs have equal breath sounds bilaterally, clear to auscultation and percussion. No rales, rhonchi or wheezes noted. No increased work of breathing, no retractions or nasal flaring. Abdomen/GI: Soft, non-tender, with normal bowel sounds. No distension or tympany. No guarding or rebound. No evidence of tenderness throughout. MS/ Extremity: Pulses equal, no cyanosis. Neurovascular intact. Full, normal range of motion. Neuro: Awake and alert, GCS 15, oriented to person, place, time, and situation. Cranial nerves II-XII grossly intact. Motor strength 5/5 in all extremities. Sensory grossly intact. Cerebellar exam normal. Normal gait. 11:46 ECG was reviewed by the Attending Physician. jr8 Vital Signs: 09:32 BP 138 / 80; Pulse 87; Resp 17; Pulse Ox 100% on R/A; Weight 92.99 kg; Height 5 ft. 5 ss in. (165.10 cm); Pain 0/10; 09:38 BP 129 / 70; Pulse 97; Resp 16; Temp 97.9; Pulse Ox 100% ; tr6 11:03 BP 124 / 77; Pulse 82; Resp 17; Pulse Ox 97% on R/A; tw2 11:58 BP 110 / 66; Pulse 83; Resp 17; Pulse Ox 99% on R/A; tw2 09:32 Body Mass Index 34.11 (92.99 kg, 165.10 cm) ss MDM: 09:30 Patient medically screened. jr8 11:47 Data reviewed: vital signs, nurses notes, lab test result(s), EKG, radiologic studies, jr8 plain films. Data interpreted: Pulse oximetry: on room air is 97 %. Interpretation: normal. 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 Response to treatment: the patient's symptoms have resolved after treatment, patient is well hydrated. ED course: Discussed with patient that she does have slightly prolonged QT. That with the palpitations she had experienced today warrants f/u with Cardiology for repeat EKG and Holter monitor. Patient good with this and will f/u based on our recommendation. Knows to come back if worse. Otherwise patients symptoms have completely resolved since being here and being treated with antiemetics . 06/02 09:51 Order name: Basic Metabolic Panel; Complete Time: 11:35 [facility] 06/02 09:51 Order name: CBC with Diff [facility] 06/02 09:51 Order name: LFT's; Complete Time: 11:35 [facility] 06/02 09:51 Order name: Magnesium; Complete Time: 11:35 [facility] 06/02 09:51 Order name: NT PRO-BNP; Complete Time: 11:35 [facility] 06/02 09:51 Order name: PT-INR [facility] 06/02 09:51 Order name: Troponin (emerg Dept Use Only); Complete Time: 11:35 [facility] 06/02 09:51 Order name: XRAY Chest (1 view) [facility] 06/02 09:51 Order name: TSH; Complete Time: 11:35 [facility] 06/02 09:51 Order name: TS [facility] 06/02 09:52 Order name: DD [facility] 06/02 11:01 Order name: CBC with Automated Diff; Complete Time: 11:02 [facility] 06/02 11:06 Order name: Protime (+INR); Complete Time: 11:06 [facility] 06/02 11:08 Order name: D-Dimer; Complete Time: 11:09 [facility] 06/02 09:32 Order name: EKG; Complete Time: 09:33 [facility] 06/02 09:32 Order name: EKG - Nurse/Tech; Complete Time: 10:58 [facility] 06/02 09:51 Order name: Cardiac monitoring; Complete Time: 10:57 [facility] 06/02 09:51 Order name: IV Saline Lock; Complete Time: 10:57 [facility] 06/02 09:51 Order name: Labs collected and sent; Complete Time: 10:57 jr06/02 09:51 Order name: O2 Per Protocol; Complete Time: 8 06/02 09:51 Order name: O2 Sat Monitoring; Complete Time: 06/02 10:24 Order name: RAD; Complete Time: 10: [facility] EC:46 Rate is 88 beats/min. Rhythm is regular, Normal Sinus Rhythm. QRS [place] is Normal. NM jr8 interval is normal at 130 msec. QRS interval is normal at 94 msec. QT interval is prolonged at 510 msec. Q waves are Present in lead III. T waves are Inverted in leads V1, V2. No ST changes noted. Clinical impression: NSR w/ Non-specific ST/T Changes. Interpreted by me. Reviewed by me. Administered Medications: 10:34 Not Given (Physician Discretion): Zofran (Ondansetron) 4 mg IVP once; over 2 minutes jr8 10:43 Drug: Benadryl (diphenhydrAMINE) 25 mg Route: IVP; Site: right antecubital; tw2 11:59 Follow up: Response: No adverse reaction; Pain is decreased tw2 10:45 Drug: NS 0.9% 1000 ml Route: IV; Rate: 1000 ml; Site: right antecubital; tw2 11:59 Follow up: Response: No adverse reaction; IV Status: Completed infusion; IV Intake: tw2 1000ml 10:45 Drug: Reglan (metoCLOPramide) 10 mg Route: IVP; Site: right antecubital; tw2 11:59 Follow up: Response: No adverse reaction tw2 Disposition: 06/02/20 11:51 Discharged to Home. Impression: Palpitations, Abnormal electrocardiogram [ECG] [EKG] - Prolonged QT. - Condition is Stable. - Discharge Instructions: Holter Monitoring, Palpitations. - Medication Reconciliation Form, Thank You Letter, Antibiotic Education, Prescription Opioid Use form. - Follow up: Pool Gonzales MD; When: 2 - 3 days; Reason: Recheck today's complaints, Continuance of care, Re-evaluation by your physician. - Problem is new. - Symptoms are resolved. Addendum: 06/03/2020 14:51 Co-signature as Attending Physician, Ben Patel MD I agree with the assessment and c nguyễn plan of care. Signatures: Dispatcher [employer] Ben Lopez MD MD cha Smirch, Shelby, RN RN Obie Meade PA PA jr8 Zena Huynh RN RN tw2 Corrections: (The following items were deleted from the chart) 06/02 09: 10:21 Cardiovascular: Negative for chest pain, palpitations, and edema, jr8 jr8 10:21 Eyes: Positive for photophobia, jr8 jr8 10:21 Respiratory: Positive for cough, with no reported sputum, shortness of breath, at jr8 rest. jr8 10: Abdomen/GI: Positive for nausea, jr8 jr8 10: Neuro: Positive for dizziness, gait disturbance, visual changes, weakness, jr8 jr8 10:23 All other systems are negative, jr8 jr8 12:00 11:51 06/02/2020 11:51 Discharged to Home. Impression: Palpitations; Abnormal tw2 electrocardiogram [ECG] [EKG] - Prolonged QT. Condition is Stable. Forms are Medication Reconciliation Form, Thank You Letter, Antibiotic Education, Prescription Opioid Use. Follow up: Pool Gonzales; When: 2 - 3 days; Reason: Recheck today's complaints, Continuance of care, Re-evaluation by your physician. Problem is new. Symptoms are resolved. jr8
--- NOTE | 2020-06-02 11:52 | ER ---
Nurse's Notes [facility] Name: Isabela Campos Age: 35 yrs Sex: Female : 1985 Arrival Date: 06/02/2020 Time: 09:13 Bed 3 Private MD: Diagnosis: Palpitations;Abnormal electrocardiogram [ECG] [EKG]-Prolonged QT Presentation: 06/02 09:32 Chief complaint: Patient states: "I was laying in bed and then my heart started going ss crazy, no I just feel cool and clammy. I felt like I was about to pass out, and my L arm got all tingly.". Coronavirus screen: Client denies travel out of the [place] in the last 14 days. Ebola Screen: Patient denies exposure to infectious person. Patient denies travel to an Ebola-affected area in the 21 days before illness onset. Initial Sepsis Screen: Does the patient meet any 2 criteria? No. Patient's initial sepsis screen is negative. Does the patient have a suspected source of infection? No. Patient's initial sepsis screen is negative. Risk Assessment: Do you want to hurt yourself or someone else? Patient reports no desire to harm self or others. Onset of symptoms was June 02, 2020. 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 - Social history:: Smoking status: Patient denies any tobacco usage or history of. Screenin:04 Abuse screen: Denies threats or abuse. Nutritional screening: No deficits noted. tw2 Tuberculosis screening: No symptoms or risk factors identified. Fall Risk None identified. Assessment: 09:39 General: Appears in no apparent distress. Behavior is calm, cooperative, Reports chills tr6 for fatigue for Denies. Pain: Pain does not radiate. Quality of pain is described as pt reports feeling tightness in chest and forehead Pain began gradually, Noted to be Also complains of. Neuro: No deficits noted. Cardiovascular: Reports diaphoresis, fatigue, nausea, palpitations, chest tightness Denies Heart tones S1 S2 Capillary refill < 3 seconds Rhythm is sinus rhythm Chest pain Dialysis shunt: Parent/caregiver reports patient has had. Respiratory: No deficits noted. GI: No deficits noted. : No deficits noted. EENT: No deficits noted. Derm: No deficits noted. Musculoskeletal: No deficits noted. 10:30 Reassessment: Patient appears in no apparent distress at this time. tr6 10:40 Reassessment: pt started dry heaving, HR went to 132, provider notified of pts hr \\T\\ tw2 condition, medicated as ordered. pt states "i think the headache and the lightheadedness came first and then the nausea came". 10:45 Reassessment: pt placed on EKG machine, no further rhythm changes noted at this time, tw2 hr range was from 80's to 90's, nad, and no nausea at this time. 11:58 Reassessment: Patient appears in no apparent distress at this time. No changes from tw2 previously documented assessment. Patient and/or family updated on plan of care and expected duration. Pain level reassessed. Patient is alert, oriented x 3, equal unlabored respirations, skin warm/dry/pink. Patient states feeling better. Patient states symptoms have improved. Vital Signs: 09:32 BP 138 / 80; Pulse 87; Resp 17; Pulse Ox 100% on R/A; Weight 92.99 kg; Height 5 ft. 5 ss in. (165.10 cm); Pain 0/10; 09:38 BP 129 / 70; Pulse 97; Resp 16; Temp 97.9; Pulse Ox 100% ; tr6 11:03 BP 124 / 77; Pulse 82; Resp 17; Pulse Ox 97% on R/A; tw2 11:58 BP 110 / 66; Pulse 83; Resp 17; Pulse Ox 99% on R/A; tw2 09:32 Body Mass Index 34.11 (92.99 kg, 165.10 cm) ED Course: 09:13 Patient arrived in ED. as 09:30 Obie Alatorre PA is PHCP. jr8 09:30 Ben Patel MD is Attending Physician. jr8 09:34 Triage completed. ss 09:35 Arm band placed on right wrist. ss 09:44 Patient has correct armband on for positive identification. Placed in gown. Bed in low tr6 position. Call light in reach. Side rails up X 1. panel monitor on. Pulse ox on. NIBP on. 09:45 Inserted saline lock: 20 gauge in right antecubital area, using aseptic technique. tw2 ,using aseptic technique. by JUSTYN Henry Blood collected. 10:56 Zena Huynh RN is Primary Nurse. tw2 11:02 TSH Sent. tr6 11:02 TS Sent. tr6 11:02 DD Sent. tr6 11:02 Basic Metabolic Panel Sent. tr6 11:02 CBC with Diff Sent. tr6 11:02 LFT's Sent. tr6 11:02 Magnesium Sent. tr6 11:02 Troponin (emerg Dept Use Only) Sent. tr6 11:02 NT PRO-BNP Sent. tr6 11:03 PT-INR Sent. tr6 11:04 Patient maintains SpO2 saturation greater than 95% on room air. tw2 11:12 Warm blanket given. PO fluids given. tr6 11:50 Pool Gonzales MD is Referral Physician. jr8 11:59 No provider procedures requiring assistance completed. IV discontinued, intact, tw2 bleeding controlled, No redness/swelling at site. Pressure dressing applied. Administered Medications: 10:34 Not Given (Physician Discretion): Zofran (Ondansetron) 4 mg IVP once; over 2 minutes jr8 10:43 Drug: Benadryl (diphenhydrAMINE) 25 mg Route: IVP; Site: right antecubital; tw2 11:59 Follow up: Response: No adverse reaction; Pain is decreased tw2 10:45 Drug: NS 0.9% 1000 ml Route: IV; Rate: 1000 ml; Site: right antecubital; tw2 11:59 Follow up: Response: No adverse reaction; IV Status: Completed infusion; IV Intake: tw2 1000ml 10:45 Drug: Reglan (metoCLOPramide) 10 mg Route: IVP; Site: right antecubital; tw2 11:59 Follow up: Response: No adverse reaction tw2 Intake: 11:59 IV: 1000ml; Total: 1000ml. tw2 Outcome: 09:44 Condition: stable tr6 11:51 Discharge ordered by . jr8 11:59 Discharged to home ambulatory. tw2 11:59 Condition: stable 11:59 Discharge instructions given to patient, significant other, Instructed on discharge instructions, follow up and referral plans. Demonstrated understanding of instructions, follow-up care. 12:00 Patient left the ED. tw2 Signatures: Antonia Thomas Shelby, RN RN Obie Alatorre PA PA jr8 Zena Huynh RN RN tw2 Adela Delatorre RN RN tr6 Corrections: (The following items were deleted from the chart) 11:20 10:40 Reassessment: pt started dry heaving, HR went to 132, provider notified of pts hr tw2 \\T\\ condition, medicated as ordered. pt states "i think the headache and the lightheadedness came first and then she said the nausea came tw2
[2020-06-02 12:06] VITALS: TEMP 97.9
[2020-06-02 12:10] VITALS: BP 110/66; O2SAT 99
--- NOTE | 2020-06-02 16:08 | EKG ---
Test Date: 2020-06-02 Test Time: 10:11:53 Chopping Machine Operator: SAMARA MEASUREMENT RESULTS: Intervals: Rate: 88 MA: 130 QRSD: 94 QT: 422 QTc: 510 [place]: P: 31 MA: 130 QRS: 8 T: -9 INTERPRETIVE STATEMENTS: Normal sinus rhythm Possible Left atrial enlargement Inferior infarct, age undetermined Cannot rule out Anterior infarct, age undetermined Prolonged QT Abnormal ECG Compared to ECG 04/19/2019 20:23:16 Myocardial infarct finding now present Electronically Signed On 06-02-20 16:06:52 CDT by Pool Gonzales
--- NOTE | 2020-06-02 16:08 | EKG ---
Test Date: 2020-06-02 Test Time: 11:43:32 Office Executive: SAMARA MEASUREMENT RESULTS: Intervals: Rate: 82 AK: 140 QRSD: 94 QT: 418 QTc: 488 [place]: P: 20 AK: 140 QRS: 19 T: 13 INTERPRETIVE STATEMENTS: Normal sinus rhythm Prolonged QT Abnormal ECG Compared to ECG 06/02/2020 10:11:53 Myocardial infarct finding no longer present Electronically Signed On 06-02-20 16:06:46 CDT by Pool Gonzales
== END 2020-06-02 12:00 | disposition home or self-care (01) ==
LOC: ER 09:12
DX: R94.31 Abnormal electrocardiogram [ECG] [EKG] (principal); Z86.711 Personal history of pulmonary embolism
CPT/HCPCS: 93005 ×2; 85025; 80048; 36415; 86900; 83735; 86850; 85610; 86901; 85379; 80076; 84443; 84484; 83880; 71045; J2765; J1200; J7030; 96361; 96374; 96375; 99285